=== PATIENT | female | born 1955 | race Caucasian/White ===

== ENCOUNTER 2017-03-17 12:24 | Observation (INO) | payer OTHER ==
[2017-03-17] MEDS ORDERED: ONDANSETRON 4 MG/2 ML VIAL IVPB ONE (13:21)
[2017-03-17] MEDS ORDERED: SODIUM CHLORIDE 1,000 ML IV STA (13:21)
[2017-03-17] MEDS ORDERED: PANTOPRAZOLE SODIUM 40 MG in SODIUM CHLORIDE 100 ML IVPB ONE (13:21)
[2017-03-17] MEDS ORDERED: ONDANSETRON 4 MG/2 ML VIAL ONE (13:27)
[2017-03-17] MEDS ORDERED: PANTOPRAZOLE SODIUM 100 ML IVPB ONE (13:27)
--- NOTE | 2017-03-17 13:38 | PDOC ---
History of Present Illness - General Chief Complaint: Chest Pain Stated Complaint: CHEST PAIN Time Seen by Provider: 03/17/17 12:56 - History of Present Illness Initial Comments: 03/17/17 13:33 "The patient is a 61-year-old female, with a significant past medical history of diabetes, who presents to the ED with nausea, vomiting, and abdominal pain that began today. While at home the patient vomited 3x. She also complains of epigastric abdominal pain that is non-radiating. Pt also subsequently developed midsternal burning chest pain 2/2 vomiting but denies any shortness of breath. The patient denies any fever, chills, or diarrhea. She denies having any urinary symptoms. She denies having a hx of appendicitis, cholecystectomy, or hysterectomy. Surgical Hx: Tubal ligation (30 years ago)" Past History - Past Medical History Allergies/Adverse Reactions: Allergies Allergy/AdvReac Type Severity Reaction Status Date / Time No Known Drug Allergies Allergy Verified 03/17/17 12:40 Home Medications: Ambulatory Orders Insulin Glargine,Hum.rec.anlog [Lantus Solostar PEN -] 15 units SQ HS 02/18/15 Acetaminophen [Tylenol .Regular Strength -] 650 mg PO Q4H PRN #0 tablet Aspirin [Ecotrin] 81 mg PO DAILY 01/26/16 Metformin HCl 850 mg PO BID 01/26/16 Sitagliptin Phosphate [Januvia] 50 mg PO DAILY 01/26/16 Anemia: No Asthma: No Cancer: No Cardiac Disorders: No CVA: No COPD: No CHF: No Dementia: No Diabetes: Yes GI Disorders: No Disorders: No HTN: No Hypercholesterolemia: No Liver Disease: No Seizures: No Thyroid Disease: No - Surgical History Abdominal Surgery: No Appendectomy: No Cardiac Surgery: No Cholecystectomy: No Lung Surgery: No Neurologic Surgery: No - Immunization History Immunization Up to Date: Yes - Suicide/Smoking/Psychosocial Hx Smoking History: Never smoked Have you smoked in the past 12 months: No Hx Alcohol Use: No Drug/Substance Use Hx: No Substance Use Type: None Hx Substance Use Treatment: No Review of Systems - Review of Systems Comments:: 03/17/17 13:34 "GENERAL/CONSTITUTIONAL: No fever or chills. No weakness. HEAD, EYES, EARS, NOSE AND THROAT: No change in vision. No ear pain or discharge. No sore throat. CARDIOVASCULAR: (+)chest burning. No shortness of breath. RESPIRATORY: No cough, wheezing, or hemoptysis. GASTROINTESTINAL: (+)nausea, vomiting, abdominal pain. No diarrhea or constipation. GENITOURINARY: No dysuria, frequency, or change in urination. MUSCULOSKELETAL: No joint or muscle swelling or pain. No neck or back pain. SKIN: No rash NEUROLOGIC: No headache, vertigo, loss of consciousness, or change in strength/ sensation. ENDOCRINE: No increased thirst. No abnormal weight change. HEMATOLOGIC/LYMPHATIC: No anemia, easy bleeding, or history of blood clots. ALLERGIC/IMMUNOLOGIC: No hives or skin allergy. " *Physical Exam - Vital Signs Last Vital Signs Temp Pulse Resp BP Pulse Ox 98.3 F 111 H 18 108/80 98 03/17/17 12:43 03/17/17 12:43 03/17/17 12:43 03/17/17 12:43 03/17/17 12:43 - Physical Exam Comments: 03/17/17 13:35 "GENERAL: Awake, alert, and fully oriented, in no acute distress HEAD: No signs of trauma EYES: PERRLA, EOMI, sclera anicteric, conjunctiva clear ENT: Auricles normal inspection, hearing grossly normal, nares patent, oropharynx clear without exudates. Moist mucosa NECK: Nontender, no stepoffs, Normal ROM, supple, no lymphadenopathy, JVD, or masses LUNGS: Breath sounds equal, clear to auscultation bilaterally. No wheezes, and no crackles HEART: Regular rate and rhythm, normal S1 and S2, no murmurs, rubs or gallops ABDOMEN: (+)Left upper quadrant tenderness and mild Left lower quadrant tenderness. no distention, Soft, normoactive bowel sounds. No guarding, no rebound. No masses EXTREMITIES: Normal range of motion, no edema. No clubbing or cyanosis. No cords, erythema, or tenderness NEUROLOGICAL: Cranial nerves II through XII intact. 5/5 strength and sensation in all extremities, Normal speech, normal gait SKIN: Warm, Dry, normal turgor, no rashes or lesions noted. Heart Score/ECG Review - History History: Slightly suspicious - Electrocardiogram EKG: Non specific repolarization disturbance - Age Age: 45-65 - Risk Factors Risk Factors Heart Score: Yes Hx Diabetes - ECG Impressions Comment:: 03/17/17 13:57 NSR, no ADONIS/STDs, TWI in anterior leads seen on prior EKG, intervals wnl, axis wnl ED Treatment Course - LABORATORY CBC & Chemistry Diagram: 03/18/17 07:00 03/18/17 07:00 - RADIOLOGY Radiology Studies Ordered: Category Date Time Status ABDOMEN & PELVIS CT WITH CONTR [CT] Stat CT Scan 03/17/17 13:15 Ordered CHEST X-RAY PORTABLE* [RAD] Stat Radiology 03/17/17 13:17 Ordered Medical Decision Making - Medical Decision Making 03/17/17 13:36 61 F with DM presenting with epigastric pain, N+V. Likely gastritis vs gastroenteritis vs PUD, as pt's tenderness is most pronounced in LUQ. However, given mild LLQ tenderness as well, will r/o colitis/diverticulitis with CT. Pt with burning chest pain that began after vomiting, likely 2/2 acid reflux. EKG nonischemic. - Labs, trop - CT abdomen pelvis - IVF, GI cocktail 03/17/17 16:34 CBC,CMP WBC 17.5 K/mm3 (4.0-10.0) H D 03/17/17 13:50 RBC 4.89 M/mm3 (3.60-5.2) 03/17/17 13:50 Hgb 13.9 GM/dL (10.7-15.3) 03/17/17 13:50 Hct 41.7 % (32.4-45.2) 03/17/17 13:50 MCV 85.3 fl (80-96) 03/17/17 13:50 MCH 28.4 pg (25.7-33.7) 03/17/17 13:50 MCHC 33.4 g/dl (32.0-36.0) 03/17/17 13:50 RDW 12.8 % (11.6-15.6) 03/17/17 13:50 Plt Count 506 K/MM3 (134-434) H D 03/17/17 13:50 MPV 8.0 fl (7.5-11.1) 03/17/17 13:50 Neutrophils % 87.3 % (42.8-82.8) H 03/17/17 13:50 Lymphocytes % 8.4 % (8-40) D 03/17/17 13:50 Monocytes % 3.4 % (3.8-10.2) L 03/17/17 13:50 Eosinophils % 0.4 % (0-4.5) 03/17/17 13:50 Basophils % 0.5 % (0-2.0) 03/17/17 13:50 Platelet Estimate Increased (NORMAL) 03/17/17 13:50 Platelet Comment No clumping noted 03/17/17 13:50 Sodium 141 mmol/L (136-145) 03/17/17 13:50 Potassium 4.1 mmol/L (3.5-5.1) 03/17/17 13:50 Chloride 106 mmol/L (98-107) 03/17/17 13:50 Carbon Dioxide 24 mmol/L (21-32) 03/17/17 13:50 Anion Gap 11 (8-16) 03/17/17 13:50 BUN 16 mg/dL (7-18) D 03/17/17 13:50 Creatinine 0.6 mg/dL (0.55-1.02) 03/17/17 13:50 Creat Clearance w eGFR > 60 (>60) 03/17/17 13:50 Random Glucose 153 mg/dL (74-106) H D 03/17/17 13:50 Lactic Acid 1.6 mmol/L (0.4-2.0) 03/17/17 13:50 Calcium 9.5 mg/dL (8.5-10.1) 03/17/17 13:50 Total Bilirubin 0.4 mg/dL (0.2-1.0) 03/17/17 13:50 AST 16 U/L (15-37) D 03/17/17 13:50 ALT 22 U/L (12-78) 03/17/17 13:50 Alkaline Phosphatase 115 U/L (45-117) 03/17/17 13:50 Creatine Kinase 70 IU/L (26-192) 03/17/17 13:50 Troponin I < 0.02 ng/ml (0.00-0.05) 03/17/17 13:50 Total Protein 7.9 g/dl (6.4-8.2) 03/17/17 13:50 Albumin 4.1 g/dl (3.4-5.0) 03/17/17 13:50 Lipase 172 U/L (73-393) 03/17/17 13:50 Labs notable for leukocytosis 17.5. Disposition is pending CT abdomen/pelvis to r/o colitis vs diverticulitis vs other acute intraabdominal process, as well as re-evaluation and PO challenge. Case discussed in detail with oncoming Emergency Physician including history, physical exam and ancillary studies. Oncoming Emergency Physician has assumed care for the patient and will complete the evaluation and treatment. Patient is aware of the plan. *DC/Admit/Observation/Transfer Diagnosis at time of Disposition: Abdominal pain Qualifiers: Abdominal location: left lower quadrant Qualified Code(s): R10.32 - Left lower quadrant pain Leukocytosis Qualifiers: Leukocytosis type: unspecified Qualified Code(s): D72.829 - Elevated white blood cell count, unspecified Nausea and vomiting Qualifiers: Vomiting type: unspecified Vomiting Intractability: unspecified Qualified Code( s): R11.2 - Nausea with vomiting, unspecified - Discharge Dispostion Condition at time of disposition: Improved Admit: Yes - Attestations Physician Attestion: 03/19/17 22:14 I, Dr. Demetrio Whitten MD, attest that this document has been prepared under my direction and personally reviewed by me in its entirety. I further attest, that it accurately reflects all work, treatment, procedures and medical decision -making performed by me.
[2017-03-17 13:54] LABS: BASOPHIL 0.5 % (0-2.0); EOSINOPHIL 0.4 % (0-4.5); MCH 28.4 pg (25.7-33.7); MCHC 33.4 g/dl (32.0-36.0); MEAN CELL VOLUME 85.3 fl (80-96); NEUTROPHILS 87.3 % (42.8-82.8); PLATELET COUNT 506 K/MM3 (134-434); RDW 12.8 % (11.6-15.6); WHITE BLOOD COUNT 17.5 K/mm3 (4.0-10.0)
[2017-03-17 14:15] LABS: INR 1.03 (0.82-1.09); PROTHROMBIN TIME (PATIENT) 11.6 SEC (9.98-11.88)
[2017-03-17 14:17] LABS: ALBUMIN 4.1 g/dl (3.4-5.0); ALK PHOS 115 U/L (45-117); ANION GAP 11 (8-16); BILIRUBIN,TOTAL 0.4 mg/dL (0.2-1.0); CALCIUM 9.5 mg/dL (8.5-10.1); CO2 24 mmol/L (21-32); CPK 70 IU/L (26-192); CREATININE 0.6 mg/dL (0.55-1.02); GLUCOSE,RANDOM 153 mg/dL (74-106); PLATELET ESTIMATE INCREASED (NORMAL); SGOT/AST 16 U/L (15-37); SGPT/ALT 22 U/L (12-78); TOT PROT 7.9 g/dl (6.4-8.2)
[2017-03-17 14:19] LABS: TROPONIN I < 0.02 ng/ml (0.00-0.05)
[2017-03-17 18:52] LABS: PH,URINE 5.5 (5.0-8.0); URINE APPEARANCE CLEAR; URINE BILIRUBIN NEGATIVE (NEGATIVE); URINE BLOOD NEGATIVE (NEGATIVE); URINE COLOR LT. YELLOW; URINE GLUCOSE (UA) NEGATIVE (NEGATIVE); URINE KETONE TRACE (NEGATIVE); URINE NITRITE NEGATIVE (NEGATIVE); URINE PROTEIN NEGATIVE (NEGATIVE); URINE UROBILINOGEN 0.2 mg/dL (0.2-1.0)
[2017-03-17] MEDS: DEXTROSE 5%-0.45% SALINE 1,000 ML IV SCH (20:52)
--- NOTE | 2017-03-17 22:06 | PDOC ---
*Physical Exam - Vital Signs Last Vital Signs Temp Pulse Resp BP Pulse Ox 99 F 85 18 102/63 96 03/17/17 19:19 03/17/17 19:19 03/17/17 19:19 03/17/17 19:19 03/17/17 19:19 - Physical Exam Comments: 03/17/17 22:02 Patient endorsed to me by Dr. Whitten. Patient is a 61-year-old female with diabetes who presented with epigastric and left-sided abdominal pain, several episodes of nonbloody, nonbilious vomiting and substernal chest burning. Patient was noted to have leukocytosis of 17.5 with predominance of neutrophils. CT that and pelvis was obtained which showed no evidence of acute intra-abdominal pathology, large amount of retained stool was noted in the left colon. Initial EKG showed no evidence of acute ischemia, chronic T wave inversions were noted. First set of cardiac enzymes was within normal limit. I discussed the case with Dr. Radha meredith of . Given the comorbidities and significant leukocytosis, patient will be kept on clears, will continue to hydrate, we will place him knob's for serial abdominal evaluation and reassessment. ED Treatment Course - LABORATORY CBC & Chemistry Diagram: 03/17/17 13:50 03/17/17 13:50 - ADDITIONAL ORDERS Additional order review: Laboratory Results 03/17/17 03/17/17 03/17/17 18:30 13:50 13:50 PT with INR 11.60 INR 1.03 PTT (Actin FS) Sodium Potassium Chloride Carbon Dioxide Anion Gap BUN Creatinine Creat Clearance w eGFR Random Glucose Lactic Acid Calcium Total Bilirubin AST ALT Alkaline Phosphatase Creatine Kinase Troponin I Total Protein Albumin Lipase 172 Urine Color Lt. yellow Urine Appearance Clear Urine pH 5.5 D Urine Protein Negative Urine Glucose (UA) Negative Urine Ketones Trace H Urine Blood Negative Urine Nitrite Negative Urine Bilirubin Negative Urine Urobilinogen 0.2 Blood Type Antibody Screen 03/17/17 03/17/17 03/17/17 13:50 13:50 13:50 PT with INR INR PTT (Actin FS) Sodium 141 Potassium 4.1 Chloride 106 Carbon Dioxide 24 Anion Gap 11 BUN 16 D Creatinine 0.6 Creat Clearance w eGFR > 60 Random Glucose 153 H D Lactic Acid 1.6 Calcium 9.5 Total Bilirubin 0.4 AST 16 D ALT 22 Alkaline Phosphatase 115 Creatine Kinase Troponin I Total Protein 7.9 Albumin 4.1 Lipase Urine Color Urine Appearance Urine pH Urine Protein Urine Glucose (UA) Urine Ketones Urine Blood Urine Nitrite Urine Bilirubin Urine Urobilinogen Blood Type O POSITIVE Antibody Screen Negative 03/17/17 03/17/17 13:50 13:50 PT with INR INR PTT (Actin FS) 27.6 Sodium Potassium Chloride Carbon Dioxide Anion Gap BUN Creatinine Creat Clearance w eGFR Random Glucose Lactic Acid Calcium Total Bilirubin AST ALT Alkaline Phosphatase Creatine Kinase 70 Troponin I < 0.02 Total Protein Albumin Lipase Urine Color Urine Appearance Urine pH Urine Protein Urine Glucose (UA) Urine Ketones Urine Blood Urine Nitrite Urine Bilirubin Urine Urobilinogen Blood Type Antibody Screen 03/17/17 13:50 RBC 4.89 MCV 85.3 MCHC 33.4 RDW 12.8 MPV 8.0 Neutrophils % 87.3 H Lymphocytes % 8.4 D Monocytes % 3.4 L Eosinophils % 0.4 Basophils % 0.5 - Medications Given in the ED: ED Medications Discontinued Medications Generic Name Dose Route Start Last Admin Trade Name Freq PRN Reason Stop Dose Admin Pantoprazole Sodium 40 mg/ 100 mls @ 200 mls/hr 03/17/17 13:21 03/17/17 13:30 Sodium Chloride IVPB 03/17/17 13:50 200 mls/hr ONCE ONE Administration Sodium Chloride 1,000 mls @ 1,000 mls/hr 03/17/17 13:21 03/17/17 13:30 Normal Saline - IV 03/17/17 14:20 1,000 mls/hr ASDIR STA Administration Ondansetron HCl 4 mg 03/17/17 13:21 03/17/17 13:30 Zofran Injection IVPB 03/17/17 13:22 4 mg ONCE ONE Administration *DC/Admit/Observation/Transfer Diagnosis at time of Disposition: Abdominal pain Qualifiers: Abdominal location: left lower quadrant Qualified Code(s): R10.32 - Left lower quadrant pain; R10.32 - Left lower quadrant pain Leukocytosis Qualifiers: Leukocytosis type: unspecified Qualified Code(s): D72.829 - Elevated white blood cell count, unspecified; D72.829 - Elevated white blood cell count, unspecified Nausea and vomiting Qualifiers: Vomiting type: unspecified Vomiting Intractability: unspecified Qualified Code( s): R11.2 - Nausea with vomiting, unspecified; R11.2 - Nausea with vomiting, unspecified - Discharge Dispostion Condition at time of disposition: Fair Admit: Yes
[2017-03-17 22:14] LABS: URINE LEUK ESTERASE Negative (NEGATIVE)
[2017-03-17] MEDS ORDERED: ONDANSETRON 4 MG/2 ML VIAL IVPUSH PRN (22:59)
--- NOTE | 2017-03-17 23:02 | HP ---
CHIEF COMPLAINT:Abdominal pain and vomiting. PCP: HISTORY OF PRESENT ILLNESS: 61 yo F with PMhx of IDDM presents with few hour history of abdominal pain and vomiting. She describes sudden constant non-radiating 10/10 sharp epigastric pain that occurred early in the morning. She states that she woke up this morning in her normal state of health and had a small peice of cake with diluted orange juice when she developed this sudden abdominal pain. She then proceeded to vomit x 6 NB/NB. This prompted trip to ED. Denies CP,MCCRAY, SOB, palpitations ,fever, chills, recent illness or change in food habits. Denies Urinary symptoms or skin rash or trauma. ER course was notable for: (1)CT abdomen was negative for acute intraabdominal pathology (2)WBC 17,000 with 87% PMN (3)Zofran for nausea. Recent Travel:denies PAST MEDICAL HISTORY:IDDM II PAST SURGICAL HISTORY:Tubal ligation Social History: Smoking:never Alcohol:socially Drugs: denies. Family History: Allergies No Known Drug Allergies Allergy (Verified 03/17/17 12:40) HOME MEDICATIONS: Home Medications Medication Instructions Recorded Insulin Glargine,Hum.rec.anlog 15 units SQ HS 02/18/15 [Lantus Solostar PEN -] Acetaminophen [Tylenol .Regular 650 mg PO Q4H PRN #0 tablet 01/26/16 Strength -] Aspirin [Ecotrin] 81 mg PO DAILY 01/26/16 Metformin HCl 850 mg PO BID 01/26/16 Sitagliptin Phosphate [Januvia] 50 mg PO DAILY 01/26/16 REVIEW OF SYSTEMS CONSTITUTIONAL: Absent: fever, chills, diaphoresis, generalized weakness, malaise, loss of appetite, weight change HEENT: Absent: rhinorrhea, nasal congestion, throat pain, throat swelling, difficulty swallowing, mouth swelling, ear pain, eye pain, visual changes CARDIOVASCULAR: Absent: chest pain, syncope, palpitations, irregular heart rate, lightheadedness , peripheral edema RESPIRATORY: Absent: cough, shortness of breath, dyspnea with exertion, orthopnea, wheezing, stridor, hemoptysis GASTROINTESTINAL: abdominal pain, abdominal distension, nausea, vomiting Absent:, diarrhea, constipation, melena, hematochezia GENITOURINARY: Absent: dysuria, frequency, urgency, hesitancy, hematuria, flank pain, genital pain MUSCULOSKELETAL: Absent: myalgia, arthralgia, joint swelling, back pain, neck pain SKIN: Absent: rash, itching, pallor HEMATOLOGIC/IMMUNOLOGIC: Absent: easy bleeding, easy bruising, lymphadenopathy, frequent infections ENDOCRINE: Absent: unexplained weight gain, unexplained weight loss, heat intolerance, cold intolerance NEUROLOGIC: Absent: headache, focal weakness or paresthesias, dizziness, unsteady gait, seizure, mental status changes, bladder or bowel incontinence PSYCHIATRIC: Absent: anxiety, depression, suicidal or homicidal ideation, hallucinations. PHYSICAL EXAMINATION GENERAL: AAOx3. NAD HEAD: NC/AT. EYES:PERRLA,EOMI, sclera anicteric, conjunctiva clear. No lid lag. EARS, NOSE, THROAT:DRY mucous membranes. NECK:Supple, NO JVD. LUNGS: CTAB. No wheezes, and no crackles. No accessory muscle use. HEART: RRR, normal S1 and S2, no m/g/r ABDOMEN: Soft, mild epigastic, not distended, normoactive bowel sounds, no guarding, no rebound, no masses. MUSCULOSKELETAL: Normal range of motion at all joints. No bony deformities or tenderness. No CVA tenderness. UPPER EXTREMITIES: 2+ pulses, warm, well-perfused. No cyanosis. No clubbing. No peripheral edema. LOWER EXTREMITIES: 2+ pulses, warm, well-perfused. No calf tenderness. No peripheral edema. NEUROLOGICAL: Cranial nerves II-XII intact. Normal speech. PSYCHIATRIC: Cooperative. Good eye contact. Appropriate mood and affect. SKIN: Warm, dry, normal turgor, no rashes or lesions noted, normal capillary refill. ASSESSMENT/PLAN: 61 yo F with PMhx of IDDM presents with abdominal pain and vomiting will be placed on observation. Problem List - Problem (1) Abdominal pain Assessment/Plan: * CT of abdomen and pelvis shows no sign of diverticulitis, colitis or other acute pathological process. It does show significant impaction. * This pain could represent a acute toxin mediated gastroenteritis vs. * Placed on observation. * IVF with NS @100ml/hr * Full liquid diet and advance as tolerated. * Encourage early ambulation. (2) Leukocytosis Assessment/Plan: * Most likely reactive to vomiting or impaction. * will repeat CBC with diff in AM (3) Nausea and vomiting Assessment/Plan: * ZOfran 4mg IV Q6H PRN. (4) DM II (diabetes mellitus, type II), controlled Assessment/Plan: * Metformin held because of contrast * BGM ACHS * ISS ACHS * ADA liquid diet. (5) DVT prophylaxis Assessment/Plan: * Heparin 5000U SQ TID Visit type - Emergency Visit Emergency Visit: Yes ED Registration Date: 03/17/17 Care time: The patient presented to the Emergency Department on the above date and was hospitalized for further evaluation of their emergent condition. - New Patient This patient is new to me today: Yes Date on this admission: 03/18/17 - Critical Care Critical Care patient: No
--- NOTE | 2017-03-17 23:43 | PN ---
Teaching Attending Note Name of Resident: Mahesh Waller ATTENDING PHYSICIAN STATEMENT I saw and evaluated the patient. I reviewed the resident's note and discussed the case with the resident. I agree with the resident's findings and plan as documented with modifications below. SUBJECTIVE: 61-year-old female, with a significant past medical history of diabetes, who presents to the ED with nausea, vomiting, and abdominal pain which began 03/17 in the morning. SHe reported about 6 episodes of nonbloody vomiting. No diarrhea. Vomiting has currently subsided. Denied any constipation and reports regular BMs. OBJECTIVE: Last Vital Signs Temp Pulse Resp BP Pulse Ox 99 F 85 18 102/63 96 03/17/17 19:19 03/17/17 19:19 03/17/17 19:19 03/17/17 19:19 03/17/17 19:19 general- appeared comfortable heent -at, nc, no masses neck -supple cv-s1+s2+ rrr chest - cta b/l abd- lower abd vertical scar skin- no rashes appreciated Abnormal Lab Results 03/17/17 03/17/17 03/17/17 13:50 13:50 18:30 WBC 17.5 H D Plt Count 506 H D Neutrophils % 87.3 H Monocytes % 3.4 L Random Glucose 153 H D Urine Ketones Trace H ASSESSMENT AND PLAN: #Nausea and vomiting-likely 2/2 gastrenteritis. Possibly preformed toxin mediated from food poisoning. Currently has improved. Troponin wnl. -admit to observation -IV fluid hydration -zofran IV prn -clear liquid diet and advance as tolerated -no antibiotics at this time #leukocytosis - likely reactive or 2/2 gastroenteritis -monitor CBC -no antibiotics at this time #DVT ppx -SCDs or early ambulation
[2017-03-17 23:55] VITALS: BMI 19.8
[2017-03-18] MEDS: INSULIN SLIDING SCALE (NOVOLOG) 1 VIAL SQ SCH ×3 (07:32→17:11)
[2017-03-18] MEDS: HEPARIN NA (PORCINE) 5,000 UNITS/ML 1ML VIAL SQ SCH ×2 (07:37→13:39)
[2017-03-18 08:53] LABS: BASOPHIL 0.4 % (0-2.0); EOSINOPHIL 0.7 % (0-4.5); MCHC 34.3 g/dl (32.0-36.0); MEAN CELL VOLUME 84.6 fl (80-96); MEAN PLT VOLUME 8.1 fl (7.5-11.1); NEUTROPHILS 66.5 % (42.8-82.8); PLATELET COUNT 423 K/MM3 (134-434); RDW 12.7 % (11.6-15.6); WHITE BLOOD COUNT 7.6 K/mm3 (4.0-10.0)
[2017-03-18 09:17] LABS: ALBUMIN 2.8 g/dl (3.4-5.0); ANION GAP 6 (8-16); CALCIUM 8.7 mg/dL (8.5-10.1); CO2 27 mmol/L (21-32); CREATININE 0.5 mg/dL (0.55-1.02); GLUCOSE,RANDOM 64 mg/dL (74-106); MAGNESIUM 2.2 mg/dL (1.8-2.4); SGPT/ALT 18 U/L (12-78)
[2017-03-18 09:20] LABS: ALK PHOS 76 U/L (45-117); BILIRUBIN,TOTAL 0.5 mg/dL (0.2-1.0); PHOSPHOROUS 3.7 mg/dL (2.5-4.9); SGOT/AST 13 U/L (15-37); TOT PROT 5.8 g/dl (6.4-8.2)
[2017-03-18] MEDS ORDERED: BISACODYL 10 MG SUPP.RECT PR ONE (12:26)
[2017-03-18] MEDS ORDERED: POLYETHYLENE GLYCOL 3350 119 GM BTL PO SCH (12:30)
[2017-03-18] MEDS: DEXTROSE 5%-0.45% SALINE 1,000 ML IV SCH (13:39)
--- NOTE | 2017-03-18 13:58 | DS ---
Physical Exam: SUBJECTIVE: Patient seen and examined OBJECTIVE: Vital Signs Period Temp Pulse Resp BP Sys/Rodriguez Pulse Ox Last 24 Hr 97.7 F-98.7 F 69-74 16-18 97-102/60-63 96-96 PHYSICAL EXAM GENERAL: The patient is awake, alert, and fully oriented, in no acute distress. HEAD: Normal with no signs of trauma. EYES: PERRL, extraocular movements intact, sclera anicteric, conjunctiva clear. ENT: Ears normal, nares patent, oropharynx clear without exudates, moist mucous membranes. NECK: Trachea midline, full range of motion, supple. LUNGS: Breath sounds equal, clear to auscultation bilaterally, no wheezes, no crackles, no accessory muscle use. HEART: Regular rate and rhythm, S1, S2 without murmur, rub or gallop. ABDOMEN: Soft, nontender, nondistended, normoactive bowel sounds, no guarding, no rebound, no hepatosplenomegaly, no masses. EXTREMITIES: 2+ pulses, warm, well-perfused, no edema. NEUROLOGICAL: Cranial nerves II through XII grossly intact. Normal speech, gait not observed. PSYCH: Normal mood, normal affect. SKIN: Warm, dry, normal turgor, no rashes or lesions noted. LABS Laboratory Results - last 24 hr 03/18/17 03/18/17 03/18/17 05:24 07:00 07:00 WBC 7.6 D RBC 4.08 Hgb 11.8 D Hct 34.5 D MCV 84.6 MCH 29.0 MCHC 34.3 RDW 12.7 Plt Count 423 MPV 8.1 Neutrophils % 66.5 D Lymphocytes % 27.1 D Monocytes % 5.3 Eosinophils % 0.7 Basophils % 0.4 Sodium 144 Potassium 4.2 Chloride 111 H Carbon Dioxide 27 Anion Gap 6 L BUN 11 D Creatinine 0.5 L Creat Clearance w eGFR > 60 POC Glucometer 148 Random Glucose 64 L D Calcium 8.7 Phosphorus 3.7 D Magnesium 2.2 D Total Bilirubin 0.5 D AST 13 L ALT 18 Alkaline Phosphatase 76 D Total Protein 5.8 L D Albumin 2.8 L D 03/18/17 12:06 WBC RBC Hgb Hct MCV MCH MCHC RDW Plt Count MPV Neutrophils % Lymphocytes % Monocytes % Eosinophils % Basophils % Sodium Potassium Chloride Carbon Dioxide Anion Gap BUN Creatinine Creat Clearance w eGFR POC Glucometer 277 Random Glucose Calcium Phosphorus Magnesium Total Bilirubin AST ALT Alkaline Phosphatase Total Protein Albumin HOSPITAL COURSE: Date of Admission:03/17/17 Date of Discharge: 03/18/17 Minutes to complete discharge: 35 Discharge Summary Reason For Visit: ABD PAIN LEUKOCYTOSIS NAUSEA VOMITTING Current Active Problems Abdominal pain (Acute) DM II (diabetes mellitus, type II), controlled (Acute) DVT prophylaxis (Acute) Leukocytosis (Acute) Nausea and vomiting (Acute) Condition: Improved - Instructions Diet, Activity, Other Instructions: Advance your diet slowly. Only eat those foods that agree with you. Be sure to drink plenty of fluids. Return to the emergency department for any new or worsening symptoms. Referrals: Charlette Bundy MD [Primary Care Provider] - Disposition: HOME - Home Medications Comprehensive Discharge Medication List: Ambulatory Orders Insulin Glargine,Hum.rec.anlog [Lantus Solostar PEN -] 15 units SQ HS 02/18/15 Acetaminophen [Tylenol .Regular Strength -] 650 mg PO Q4H PRN #0 tablet Aspirin [Ecotrin] 81 mg PO DAILY 01/26/16 Metformin HCl 850 mg PO BID 01/26/16 Sitagliptin Phosphate [Januvia] 50 mg PO DAILY 01/26/16 This patient is new to me today: Yes Date on this admission: 03/18/17 Emergency Visit: Yes ED Registration Date: 03/17/17 Care time: The patient presented to the Emergency Department on the above date and was hospitalized for further evaluation of their emergent condition. Critical Care patient: No
[2017-03-18 15:19] VITALS: BP 112/68; PULSE 69; TEMP 98.5
--- NOTE | 2017-03-18 16:24 | CON.GI ---
Consult Consult Specialty:: GI Referred by:: Hospitalist Service Reason for Consultation:: Nausea/vomiting - History of Present Illness Chief Complaint: "I was vomiting" [employer] [id number] Utilized History of Present Illness: 61F admitted [facility] yesterday for evaluation of N/V and abdominal cramping. Ms. Garsia describes 3 episodes of non-bloody vomiting 3 yesterday prompting her ER eval. when in the ER she stated that she vomited 3 more times. She was in the ER for most of yesterday and was feeling better by the evening however her WBC was noted to be 17. CT scan in the ER performed with PO and IV contrast was unrevealing for acute pathology. She denied any associated diarrhea, fevers, chills, travel, change in diet or sick contacts. EGD and colonoscopy were performed by myself in 2014. EGD was unrevealing and colonoscopy revealed a fair prep with retained liquid stool requiring aggressive washing and suctioning. It also led to the removal of a subcentimeter tubular adenoma. A 3 year follow-up was advised given the fair bowel prep. there is no family history of colorectal cancer or other Gi malignancy. She currently feels well and is tolerating a diet. - History Source History Provided By: Patient Limitations to Obtaining History: No Limitations - Past Medical History Gastrointestinal: Yes: Other (Colon polyp: Tubular Adenoma 2014) Endocrine: Yes: Diabetes Mellitus - Past Surgical History Past Surgical History: Yes: Tubal Ligation (along with cystectomy of right ovary ) - Alcohol/Substance Use Hx Alcohol Use: No History of Substance Use: reports: None - Smoking History Smoking history: Never smoked Have you smoked in the past 12 months: No - Social History Usual Living Arrangement: With Spouse ADL: Independent Occupation: House Keeper Place of : Other ([place]) History of Recent Travel: No Home Medications - Allergies Allergies/Adverse Reactions: Allergies Allergy/AdvReac Type Severity Reaction Status Date / Time No Known Drug Allergies Allergy Verified 03/17/17 12:40 - Home Medications Home Medications: Ambulatory Orders Insulin Glargine,Hum.rec.anlog [Lantus Solostar PEN -] 15 units SQ HS 02/18/15 Acetaminophen [Tylenol .Regular Strength -] 650 mg PO Q4H PRN #0 tablet Aspirin [Ecotrin] 81 mg PO DAILY 01/26/16 Metformin HCl 850 mg PO BID 01/26/16 Sitagliptin Phosphate [Januvia] 50 mg PO DAILY 01/26/16 Family Disease History - Family Disease History Family Disease History: Other: Father ( 98: old age), Mother ( 87: "old age"), Brother (3, healthy), Sister (1, healthy), Son (1, healthy), Daughter (2 , healthy) Other Family History: No family history of colorectal cancer or other GI malignancy Review of Systems - Review of Systems Constitutional: denies: Chills, Fever Cardiovascular: denies: Chest Pain, Shortness of Breath Respiratory: denies: Cough Gastrointestinal: reports: Abdominal Pain (resolved). denies: Bloating, Constipation, Diarrhea, Melena, Rectal Bleeding, Vomiting Blood Physical Exam-GI Vital Signs: Vital Signs Temperature 98.5 F 03/18/17 15:17 Pulse Rate 69 03/18/17 15:17 Respiratory Rate 18 03/18/17 15:17 Blood Pressure 112/68 03/18/17 15:17 O2 Sat by Pulse Oximetry (%) 96 03/18/17 06:59 Constitutional: Yes: Calm Eyes: No: Sclera Icterus Cardiovascular: Yes: Regular Rate and Rhythm. No: Murmur Respiratory: Yes: CTA Bilaterally Gastrointestinal Inspection: Yes: Scars (pelvic scar) ...Auscultate: Yes: Normoactive Bowel Sounds ...Palpate: Yes: Soft. No: Guarding, Hepatomegaly, Splenomegaly, Tenderness ...Percussion: No: Tympanitic Edema: No Neurological: Yes: Alert, Oriented Labs: CBC, BMP 03/18/17 07:00 03/18/17 07:00 INR, PTT INR 1.03 (0.82-1.09) 03/17/17 13:50 Hepatic Panel Total Bilirubin 0.5 mg/dL (0.2-1.0) D 03/18/17 07:00 AST 13 U/L (15-37) L 03/18/17 07:00 ALT 18 U/L (12-78) 03/18/17 07:00 Alkaline Phosphatase 76 U/L (45-117) D 03/18/17 07:00 Albumin 2.8 g/dl (3.4-5.0) L D 03/18/17 07:00 Imaging - Results Cat Scan: Report Reviewed Problem List - Problems (1) Nausea and vomiting Assessment/Plan: Resolved N/V and tolerating PO. ? resolved gastroenteritis No GI objection to D/C home. i advised Ms. Garsia that she will need GI follow -up in 2 weeks. I explained that currently I am not seeing outpatients. She would like to continue going to the [facility] where her records are located. I reminded her that she will need a repeat colonoscopy this coming year given the history of colon polyp. She stated that she understood. Code(s): R11.2 - NAUSEA WITH VOMITING, UNSPECIFIED Qualifiers: Vomiting type: unspecified Vomiting Intractability: unspecified Qualified Code(s): R11.2 - Nausea with vomiting, unspecified; R11.2 - Nausea with vomiting, unspecified
[2017-03-18] MEDS ORDERED: DOCUSATE SODIUM 100 MG CAPSULE (FP) PO SCH (22:00)
--- NOTE | 2017-03-19 14:52 | EKG ---
Test Reason : Blood Pressure : / mmHG Vent. Rate : 102 BPM Atrial Rate : 102 BPM P-R Int : 134 ms QRS Dur : 064 ms QT Int : 380 ms P-R-T Axes : 077 -07 054 degrees QTc Int : 495 ms SINUS TACHYCARDIA POSSIBLE LEFT ATRIAL ENLARGEMENT ABNORMAL ECG WHEN COMPARED WITH ECG OF 18-FEB-2015 08:03, PREMATURE VENTRICULAR COMPLEXES ARE NO LONGER PRESENT VENT. RATE HAS INCREASED BY 39 BPM Confirmed by MELISA PHILLIPS, WILLIAM ([id number]) on 03/19/2017 2:51:38 PM Referred By: Confirmed By:WILLIAM VINCENT MD
== END 2017-03-18 18:00 | disposition home or self-care (01) ==
LOC: JER 12:24 → JERBED 22:06 → J5S 23:31
PROVIDERS: ADMIT Internal Medicine; ATTEND Nurse Practitioner Acute Care
PROC: 3E033GC Introduction of Other Therapeutic Substance into Peripheral Vein, Percutaneous Approach (ICD-10-PCS; principal; 2017-03-17)
PROC: 3E0337Z Introduction of Electrolytic and Water Balance Substance into Peripheral Vein, Percutaneous Approach (ICD-10-PCS; 2017-03-17)
PROC: 3E013GC Introduction of Other Therapeutic Substance into Subcutaneous Tissue, Percutaneous Approach (ICD-10-PCS; 2017-03-17)
DX: R10.32 Left lower quadrant pain (principal); D72.829 Elevated white blood cell count, unspecified; R11.2 Nausea with vomiting, unspecified; E11.9 Type 2 diabetes mellitus without complications; Z79.4 Long term (current) use of insulin; Z79.82 Long term (current) use of aspirin; Z79.84 Long term (current) use of oral hypoglycemic drugs
CPT/HCPCS: 36415; 71010-TC; 74177-TC; 80053; 81003; 82550; 83605; 83690; 83735; 84100; 84484; 85025; 85610; 85730; 86850; 86900; 86901; 93005; 93010; 99285-25; G0378; J1644